=== PATIENT | male | born 1990 | race Caucasian/White ===

== ENCOUNTER 2017-01-31 14:19 | Emergency (ER) | payer SELFPAY ==
--- NOTE | 2017-01-31 15:21 | ER Document Report ---
ED Medical Screen (RME) - General Stated Complaint: BACK PAIN Notes: Patient here for pilonidal cyst that will occasionally drain. Now states he feels like he has a larger pocket next to the original area. Patient states he has had it lanced before. I have greeted and performed a rapid initial assessment of this patient. A comprehensive ED assessment and evaluation of the patient, analysis of test results and completion of the medical decision making process will be conducted by additional ED providers. Physical Exam - Vital signs Vitals: Temp Pulse Resp BP Pulse Ox 98.6 F 64 20 143/85 H 98 01/31/17 14:42 01/31/17 14:42 01/31/17 14:42 01/31/17 14:42 01/31/17 14:42 - General General appearance: Appears well, Alert In distress: None Notes: walks with normal gait Course - Vital Signs Vital signs: Temp Pulse Resp BP Pulse Ox 98.6 F 64 20 143/85 H 98 01/31/17 14:42 01/31/17 14:42 01/31/17 14:42 01/31/17 14:42 01/31/17 14:42
[2017-01-31] MEDS ORDERED: LIDOCAINE 1%/EPINEPHRINE INJ 20 ML VIAL INJ ONE (19:01)
--- NOTE | 2017-01-31 19:03 | ER Document Report ---
ED Skin Rash/Insect Bite/Abscs - General Chief Complaint: Abscess Stated Complaint: BACK PAIN Time seen by provider: 19:01 Mode of Arrival: Ambulatory Information source: Patient Notes: This is a 26-year-old man with a history of a pilonidal cyst which is been lanced in the past who presents to the emergency room with increased swelling and pain to the area. Patient denies fever, chills, nausea vomiting. TRAVEL OUTSIDE OF THE [place] IN LAST 30 DAYS: No - HPI Patient complains to provider of: Skin rash/lesion Onset: Last week Onset/Duration: Gradual Quality of pain: Dull Severity: Moderate Pain Level: 3 Skin Character: Lesion, Other - Cystic lesion Skin Temperature: Warm Identify cause: Yes - history of pilonidal cysts Exacerbated by: Other - Touching Relieved by: Denies Similar symptoms previously: No Recently seen / treated by doctor: No - Related Data Allergies/Adverse Reactions: cefuroxime [From Ceftin] Allergy (Verified 01/31/17 15:24) Past Medical History - General Information source: Patient - Social History Smoking Status: Current Every Day Smoker Cigarette use (# per day): Yes - half pack per day Chew tobacco use (# tins/day): No Frequency of alcohol use: None Drug Abuse: None Lives with: Family Family History: Reviewed & Not Pertinent Patient has suicidal ideation: No Patient has homicidal ideation: No - Medical History Medical History: Other Renal/ Medical History: Denies: Hx Peritoneal Dialysis Surgical Hx: Negative Review of Systems - Review of Systems Notes: Review of systems: Constitutional: Denies fever, chills. EENT: Denies ear pain, sinus tenderness, throat pain, throat swelling. Cardiovascular: Denies chest pain, palpitations, dyspnea or edema. Respiratory: Denies wheezing, cough, hemoptysis. Abdomen: Denies abdominal pain, nausea, vomiting, diarrhea. Denies BRBPR or melena. Genitourinary: Denies dysuria, pyuria, hematuria, flank pain. Musculoskeletal: See H&P. Neurologic: Denies headache, photophobia, neck stiffness, weakness. Denies loss of bowel or bladder function. Denies saddle anesthesia. Skin: See H&P. Physical Exam - Vital signs Vitals: Temp Pulse Resp BP Pulse Ox 98.6 F 64 20 143/85 H 98 01/31/17 14:42 01/31/17 14:42 01/31/17 14:42 01/31/17 14:42 01/31/17 14:42 Notes: Physical exam: GENERAL: 26-year-old man, alert and oriented 3, no acute distress HEAD: Atraumatic, normocephalic. EYES: Pupils equal round and reactive to light, extraocular movements intact, sclera anicteric, conjunctiva are normal. ENT: Moist mucous membranes. LUNGS: Breath sounds clear to auscultation bilaterally and equal. No wheezes rales or rhonchi. HEART: Regular rate and rhythm without murmurs, rubs or gallops. ABDOMEN: Soft, normoactive bowel sounds. No tenderness to palpation. No guarding, no rebound. No masses appreciated. Back: Patient does have a area of tenderness and fluctuance in the midline crease of the upper buttocks consistent with a pilonidal cyst. There is no overlying cellulitis. EXTREMITIES: Normal range of motion, no pitting or edema. No clubbing or cyanosis. NEUROLOGICAL: Cranial nerves II through XII grossly intact. Normal speech, normal gait. PSYCH: Normal mood, normal affect. SKIN: Swelling and fluctuance consistent with cyst. Course - Vital Signs Vital signs: Temp Pulse Resp BP Pulse Ox 98.6 F 64 20 143/85 H 98 01/31/17 14:42 01/31/17 14:42 01/31/17 14:42 01/31/17 14:42 01/31/17 14:42 Procedures - Incision and Drainage Mid- Buttock Time completed: 20:13 Type: Single Anesthetic type: 1% Lidocaine w/epi mL's of anesthetic: 5 Blade size: 11 I&D procedure: Chlorprep applied, Iodoform packing placed Incision Method: Incision made by scalpel Amount/type of drainage: serosanguineous fluid removed (no pus) Notes: 01/31/17 20:13 Under sterile indurations, an incision just to the left of midline was made. There was serosanguineous fluid which was removed. It did not look infected. The overlying skin did not look infected. The area had been drained before and there was some scar tissue in that area. There is a sinus track leading to the skin. Attempted fenestration of the cyst pocket was made with the forceps. Loculations were broken up. The sac irrigated. The area was packed with iodoform gauze. There was then dressed. 01/31/17 20:15 Discharge - Discharge Clinical Impression: pilonidal cyst, Pre-hypertension Condition: Stable Disposition: HOME, SELF-CARE Instructions: Oral Narcotic Medication ([facility]), Post Incision and Drainage Additional Instructions: Recommendations: Take Percocet for pain: This is a narcotic, see the narcotic instruction sheet. Leave the packing in place. If the packing falls out, leave it out. You can shower daily: I recommended cleaning the area around the cyst with Hibiclens soap (sold [id number] at the local pharmacy). You can pull the packing out yourself in 2 days. Alternatively, you can return to the emergency room for packing removal. Keep the wound covered with some gauze provided and you can tape it with paper tape. The wound was purposely left open to allow it to drain over the next few days. After the packing is removed, these tend to close up rather quickly on their own. Ultimately, these cysts tend to recur and I recommend you follow-up with Dr. Mcelroy in surgery clinic for definitive removal of the cyst sac. This is usually done in an outpatient surgery. Return to the emergency room for worsening pain, worsening swelling, redness, pussy drainage or any concerns that it's getting infected Note: Your blood pressure was noted This evening. It is not uncommon to see blood pressures which are little elevated in the ER. The only recommendation is to follow-up with a primary care doctor for repeat blood pressure check. The number the [facility] ([facility] with the hospital) is on the discharge summary paperwork. The pain medicine you're taking prescribed as a narcotic. There are several important things you should know about this medicine: 1. This medicine contains Tylenol: It is important that you do not take Tylenol (or acetaminophen) while on this medicine. Tylenol is metabolized by the liver and taking too much Tylenol (acetaminophen) can lay to liver damage and even liver failure. 2. Taking narcotics for too long can lead to physical and mental dependence. Take this medicine only if really needed and in the lowest quantity to achieve pain relief. 3. Do not drink alcohol while on this medicine. Alcohol interacts with narcotics and the combination can be dangerous. 4. Do not drive or operate machinery while on this medicine. 5. Narcotics do cause constipation, so drink plenty of fluids and daily stool softeners. Prescriptions: Oxycodone HCl/Acetaminophen [Percocet 5-325 mg Tablet] 1 - 2 tab PO ASDIR PRN # 25 tablet PRN Reason: Forms: Elevated Blood Pressure Referrals: POLLY LINDO MD [ACTIVE STAFF] - Follow up as needed (This is the number for the surgery clinic)
[2017-01-31 20:36] VITALS: BP 156/91
== END 2017-01-31 20:37 | disposition home or self-care (01) ==
LOC: ER 14:19
PROC: 0H98XZZ Drainage of Buttock Skin, External Approach (ICD-10-PCS; principal; 2017-01-31)
DX: L05.01 Pilonidal cyst with abscess (principal); R03.0 Elevated blood-pressure reading, without diagnosis of hypertension; M54.9 Dorsalgia, unspecified; F17.210 Nicotine dependence, cigarettes, uncomplicated
CPT/HCPCS: 99283; 10080; J3490